=== PATIENT | female | born 1995 | race American Indian/Alaskan Native ===

== ENCOUNTER 2019-03-05 08:51 | Inpatient (IN) | payer MEDICAID ==
[2019-03-05] MEDS ORDERED: TERBUTALINE 1 MG/1 ML INJ IVP PRN (09:28)
[2019-03-05] MEDS ORDERED: TERBUTALINE 1 MG/1 ML INJ SUB-Q PRN (09:28)
[2019-03-05] MEDS ORDERED: NALOXONE 0.4 MG/1 ML INJ IV PRN (09:28)
[2019-03-05] MEDS ORDERED: ONDANSETRON 4 MG/2 ML INJ IV PRN (09:28)
[2019-03-05] MEDS ORDERED: MINERAL OIL 30 ML ORAL LIQD PO PRN (09:28)
[2019-03-05] MEDS ORDERED: ePHEDrine SULFATE 50 MG/1 ML INJ IV PRN (09:28)
[2019-03-05] MEDS ORDERED: BUTORPHANOL 2 MG/1 ML INJ IV PRN (09:28)
[2019-03-05] MEDS ORDERED: LIDOCAINE (2%) 20 MG/1 ML VIAL 20 ML MDV INFILTRATI SCH (09:28)
[2019-03-05] MEDS ORDERED: OXYTOCIN 20 UNIT/1000ML DRIP 20 UNITS/1,000 ML BAG IV SCH (10:00)
[2019-03-05 10:42] LABS: Hematocrit 30.9 % (30.3-42.9); Mean Corpuscular HGB Conc 32 % (30-34); Mean Corpuscular Volume 76 fl (79-97); Platelet Count 338 K/mm3 (140-440); Red Blood Count 4.04 M/mm3 (3.65-5.03); Red Cell Distribution Width 17.5 % (13.2-15.2)
[2019-03-05] MEDS ORDERED: DINOPROSTONE 10 MG VAG SUPP VG NR (12:00)
[2019-03-05] MEDS ORDERED: OXYTOCIN DRIP 30 UNITS/500 ML BAG IV SCH ×2 (12:00→22:00)
[2019-03-05] MEDS ORDERED: AMPICILLIN/NS 2 GM/100 ML 2 GM/100 ML BAG IV ONE (12:00)
--- NOTE | 2019-03-05 13:08 | History and Physical Report ---
History of Present Illness Date of examination: 03/05/19 Date of admission: 03/05/19 08:52 Chief complaint: scheduled induction of labor History of present illness: Pt is a 23 year old -[place]ron[place] female primigravida JORGE 03/10/19 at 39w2d presents for scheduled induction of labor at 39 wks secondary to morbid obesity. She reports good movement, vaginal bleeding, and leakage of fluid. She has had care at [facility] with comanagement with MFM since 11 wks complicated by chlamydia infection treated with negative test of cure, anem ia on iron supplementation. She is GBS positive. 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 (treated with negative test of cure ) Social history: other (Crohn's Disease ) - Obstetrical History Expected Date of Delivery: 03/10/19 Actual Gestation: 39 Week(s) 2 Day(s) : 1 Medications and Allergies Allergies Allergy/AdvReac Type Severity Reaction Status Date / Time latex Allergy Rash Verified 03/05/19 10:46 Home Medications Medication Instructions Recorded Confirmed Last Taken Type No Known Home Medications [No 03/05/19 03/05/19 Unknown History Reported Home Medications] Active Meds: Active Medications Butorphanol Tartrate (Stadol) 2 mg IV Q2H PRN PRN Reason: Pain , Severe (7-10) Dinoprostone (Cervidil) 10 mg VG ONCE NR Stop: 03/05/19 16:00 Ephedrine Sulfate (Ephedrine Sulfate) 10 mg IV Q2M PRN PRN Reason: Hypotension Oxytocin/Sodium Chloride (Pitocin/Ns 20 Unit/1000ml Drip) 20 units in 1,000 mls @ 125 mls/hr IV DIRECT DIXIE Oxytocin/Sodium Chloride (Pitocin/Ns 30 Unit/500ml) 30 units in 500 mls @ 1 mls/hr IV TITR DIXIE; Protocol Oxytocin/Sodium Chloride (Pitocin/Ns 30 Unit/500ml) 30 units in 500 mls @ 2 mls/hr IV TITR DIXIE; Protocol Lactated Ringer's (Lactated Ringers) 1,000 mls @ 125 mls/hr IV DIRECT DIXIE Ampicillin Sodium (Ampicillin/Ns 1 Gm/50 Ml) 1 gm in 50 mls @ 100 mls/hr IV Q4H DIXIE; Protocol Lidocaine (Xylocaine 2%) 20 ml INFILTRATI ONCE DIXIE Stop: 03/05/19 23:59 Mineral Oil (Mineral Oil) 30 ml PO QHS PRN PRN Reason: Constipation Naloxone HCl (Naloxone) 0.1 mg IV Q2MIN PRN PRN Reason: Res Rate </= 8 or 02 SAT < 92% Ondansetron HCl (Zofran) 4 mg IV Q8H PRN PRN Reason: Nausea And Vomiting Terbutaline Sulfate (Brethine) 0.25 mg SUB-Q ONCE PRN PRN Reason: Hyperstimulation/Hypertonicity Terbutaline Sulfate (Brethine) 0.25 mg IVP ONCE PRN PRN Reason: Hyperstimulation/Hypertonicity Review of Systems All systems: negative - Vital Signs Vital signs: Vital Signs Pulse BP 107 H 116/61 03/05/19 10:08 03/05/19 10:08 Temp Pulse Resp BP Pulse Ox 98.8 F 107 H 18 116/61 03/05/19 10:10 03/05/19 10:08 03/05/19 10:10 03/05/19 10:08 - Physical Exam Breasts: Positive: deferred Cardiovascular: Regular rate Lungs: Positive: Clear to auscultation Abdomen: Positive: soft (obese, gravid ) Genitourinary (Female): Positive: normal external genitalia Uterus: Positive: enlarged (gravid ) Extremities: Positive: edema (trace) - Obstetrical Cervical Dilatation: 1 (per RN ) Uterine Contraction Pattern: Absent Uterine Tone Measurement Phase: Resting Uterine Contraction Intensity: Mild Results Result Diagrams: 03/05/19 10:21 Abnormal lab results 03/05/19 Range/Units 10:21 Hgb 10.0 L (10.1-14.3) gm/dl MCV 76 L (79-97) fl MCH 25 L (28-32) pg RDW 17.5 H (13.2-15.2) % All other labs normal. Assessment and Plan A: IUP at 39w2d Morbid Obesity Anemia GBS positive P: Admit to labor and delivery Cervidil for cervical ripening GBS prophylaxis Routine intrapartum care
[2019-03-05] MEDS: LACTATED RINGERS 1,000 ML IV SCH ×3 (14:31→22:39)
[2019-03-05] MEDS: AMPICILLIN/NS 1 GM/50 ML 1 GM/50 ML BAG IV SCH ×2 (17:00→23:25)
[2019-03-06] MEDS: AMPICILLIN/NS 1 GM/50 ML 1 GM/50 ML BAG IV SCH ×2 (04:24→04:25)
[2019-03-06] MEDS ORDERED: oxyCODONE /ACETAMINOPHEN 5-325MG TAB PO PRN (07:46)
[2019-03-06] MEDS ORDERED: HYDROcodone/ACETAMINOPHEN 5-325 MG TAB PO PRN ×2 (07:46→10:37)
[2019-03-06] MEDS ORDERED: PROMETHAZINE 25 MG TAB PO PRN (07:46)
[2019-03-06] MEDS ORDERED: MAGNESIUM HYDROXIDE (MOM) ORAL LIQD UDC PO PRN ×2 (07:46→10:37)
[2019-03-06] MEDS ORDERED: KETOROLAC 30 MG/1 ML INJ IV PRN (07:46)
[2019-03-06] MEDS ORDERED: PROMETHAZINE 25 MG RECT SUPP PR PRN ×2 (07:46→10:37)
[2019-03-06] MEDS ORDERED: WITCH HAZEL/ GLYCERIN PAD TP PRN ×2 (07:46→10:37)
[2019-03-06] MEDS ORDERED: LANOLIN/ZINC/DIMETHICONE (LANSINOH) 7 GM TP PRN ×2 (07:46→10:37)
[2019-03-06] MEDS ORDERED: ONDANSETRON 4 MG/2 ML INJ IV PRN (07:46)
[2019-03-06] MEDS ORDERED: diphenhydrAMINE 25 MG CAP PO PRN (07:46)
[2019-03-06] MEDS ORDERED: SENNOSIDES/DOCUSATE SODIUM 8.6/50 MG TAB PO SCH (08:00)
[2019-03-06] MEDS ORDERED: IBUPROFEN 600 MG TAB PO SCH (08:00)
--- NOTE | 2019-03-06 08:05 | Procedure Note ---
OB Delivery Note - Delivery Date of Delivery: 03/06/19 Surgeon: MICHAEL CASTELAN Estimated blood loss: 300cc - Vaginal Delivery presentation: vertex Delivery position: OA Intrapartum events: no care, labor-<37 weeks, febrile- temp >100.3 Delivery induction: none Delivery monitor: external FHT, external uterine Route of delivery: Delivery placenta: spontaneous Delivery cord: 3 umbilical vessels Episiotomy: none Delivery laceration: 1st degree Delivery repair: vicryl Anesthesia: local Delivery comments: Patient came into L and D for contractions noted to be 9cm. Patient srom at 0725 and commenced to pushing a viable female infant at 0819. The patient Apgars were 8 and 9 and weight of 5 pounds 5.2oz. Survey of perineum revealed a first degree repaired with 2-0 vicryl. BL 300 cc. Excellent hemostaisis. Placenta sent to path. Patient was noted to have foul smelling amnionic fluid and tach with maternal temp of 101. Amp, gent and clinda started
--- NOTE | 2019-03-06 08:16 | Event Note ---
Date: 03/06/19 Patient admitted for IOL for MO. Patient had cervidil and pitocin and noted to have cat 2 strip. After reviewing strip and discussing with family, we decided remote from delivery NRFHT will proceed with primary csec. We discussed bleeding infection, damage to pelvic and non pelvic organs risk of hysterectomy and . patient agrees, all questions answered ad will proceed with csec
[2019-03-06] MEDS ORDERED: OXYTOCIN 20 UNIT/1000ML DRIP 20 UNITS/1,000 ML BAG IV SCH ×3 (08:30→11:00)
[2019-03-06] MEDS ORDERED: ACETAMINOPHEN 325 MG TAB PO PRN (08:30)
[2019-03-06] MEDS ORDERED: BICITRA ORAL LIQD 30ML ONE (08:49)
[2019-03-06] MEDS ORDERED: ceFAZolin/Water 2 GM/20 ML 2 GM/20 ML SYRINGE IV ONE (08:50)
--- NOTE | 2019-03-06 08:57 | Anesthesia Consultation ---
Anesthesia Consult and Med Hx Date of service: 03/06/19 - Airway Anesthetic Teeth Evaluation: Good ROM Head & Neck: Adequate Mental/Hyoid Distance: Adequate Mallampati Class: Class II Intubation Access Assessment: Probably Good - Pulmonary Exam CTA: Yes - Cardiac Exam Cardiac Exam: RRR - Pre-Operative Health Status ASA Pre-Surgery Classification: ASA3 Proposed Anesthetic Plan: Spinal - Pulmonary Hx Asthma: No - Additional Comments Anesthesia Medical History Comments: Chron's dz
--- NOTE | 2019-03-06 08:57 | Anesthesia Day of Surgery ---
Anesthesia Day of Surgery - Day of Surgery Patient Examined: Yes Patient H&P Reviewed: Yes Patient is NPO: Yes
[2019-03-06] MEDS ORDERED: BICITRA ORAL LIQD 30ML PO NR (09:00)
[2019-03-06] MEDS ORDERED: LACTATED RINGERS 1,000 ML IV SCH (09:00)
[2019-03-06] MEDS ORDERED: METOCLOPRAMIDE 10 MG/2 ML INJ IV NR (09:00)
[2019-03-06] MEDS ORDERED: FAMOTIDINE 20 MG/2 ML INJ IV NR (09:00)
[2019-03-06] MEDS ORDERED: ceFAZolin/Water 2 GM/20 ML 2 GM/20 ML SYRINGE IV NR (09:00)
[2019-03-06] MEDS ORDERED: DEXMEDETOMIDINE 200 MCG/2 ML VIAL IV ONE (09:10)
[2019-03-06] MEDS ORDERED: KETOROLAC 30 MG/1 ML INJ ONE (09:10)
[2019-03-06] MEDS ORDERED: ONDANSETRON 4 MG/2 ML INJ ONE (09:10)
[2019-03-06] MEDS ORDERED: OXYTOCIN 10 UNIT/1 ML INJ ONE (09:10)
[2019-03-06] MEDS ORDERED: BUPIVACAINE/PF (0.5%) 5 MG/1 ML 30 ML VIAL INFILTRATI ONE (09:10)
[2019-03-06] MEDS ORDERED: SODIUM CHLORIDE 0.9% IRR 1,500 ML BOTTLE IR ONE (09:45)
[2019-03-06] MEDS ORDERED: WATER FOR IRRIG STERILE 1,500 ML BOTTLE IR ONE (09:45)
[2019-03-06] MEDS ORDERED: METHYLERGONOVINE MALEATE 0.2 MG/ML VIAL IM ONE (09:52)
[2019-03-06] MEDS ORDERED: HETASTARCH 6% 500 ML IV ONE (09:57)
[2019-03-06] MEDS ORDERED: PHENYLEPHRINE/NS 1,000 MCG/10 ML SYRINGE (OR USE) IV ONE (09:57)
[2019-03-06] MEDS ORDERED: DOCUSATE SODIUM 100 MG CAP PO SCH (10:00)
[2019-03-06] MEDS ORDERED: PRENATAL VIT27-FE FUMARATE-FOLIC ACID VIT TAB PO SCH (10:00)
[2019-03-06] MEDS ORDERED: NalbUPHINE 10 MG/1 ML INJ IV PRN (10:31)
--- NOTE | 2019-03-06 10:31 | Post Anesthesia Evaluation ---
- Post Anesthesia Evaluation Patient Participated: Yes Airway Patent: Yes Stable Respiratory Function: Yes Nausea/Vomiting: No Temp > 96.8F: Yes Pain Manageable: Yes Adequeate Hydration: Yes Anesthesia Complications: No Block Receding Appropriately: Yes
[2019-03-06] MEDS ORDERED: HYDROCORTISONE 25 MG RECTAL SUPP PR PRN (10:37)
[2019-03-06] MEDS ORDERED: MORPHINE 2 MG/1 ML INJ IV PRN (10:37)
[2019-03-06] MEDS ORDERED: NALOXONE 0.4 MG/1 ML INJ IV PRN (10:37)
[2019-03-06] MEDS ORDERED: SIMETHICONE 80 MG CHEW TAB PO PRN (10:37)
[2019-03-06] MEDS ORDERED: MORPHINE 4 MG/1 ML INJ IV PRN (10:37)
[2019-03-06] MEDS ORDERED: SENNOSIDES 8.6 MG TAB PO PRN (10:37)
--- NOTE | 2019-03-06 10:41 | Procedure Note ---
OB Delivery Note - Delivery Date of Delivery: 03/06/19 Surgeon: MICHAEL CASTELAN Estimated blood loss: 500cc - Section Preop diagnosis: nonreassuring FHR tracing Postop diagnosis: same section procedure: section Disposition: PACU Complications: none Narrative: see op note - Infant A at 1 minute: 8 at 5 minutes: 9 Gender: Female (2901 g weight)
--- NOTE | 2019-03-06 10:46 | Operative Report ---
Operative Report Operative Report: DATE OF OPERATION:03/06/19 PREOPERATIVE DIAGNOSES: 1. Intrauterine gestation at 39 weeks,IOL for MO 2. NRFHT with late decels 3. Meconium POSTOPERATIVE DIAGNOSES: 1. Intrauterine gestation at 39 weeks , IOL for MO 2. NRFHT with late decels 3. Meconium 4. Double tight nuchal cord OPERATION PERFORMED: Primary low transverse section. SURGEON: Daya Patel MD ANESTHESIA: Spinal COMPLICATIONS: None. ESTIMATED BLOOD LOSS: 500 mL. DRAINS: Valdivia catheter to the bladder. SPECIMENS TO PATHOLOGY: Cord blood for routine testing. OPERATIVE FINDINGS: A viable female infant with Apgars of 8 and 9 and birthweight of 2901g was delivered from a cephalic presentation,. The cord contained 3 vessels. Nuchal cord x2 tight There was normal anterior fundal placenta. The amniotic fluid was clear. The uterus, fallopian tubes and ovaries were normal. DESCRIPTION OF OPERATION: The patient was brought to the operating suite in stable condition with epidural anesthesia on board and an indwelling catheter in place in the bladder. The patient was placed supine on the operating room table and rolled to her left side with a wedge. The abdomen was prepped and draped in standard fashion for section. After testing with forceps to assure an adequate anesthetic level, the surgery was commenced. We had counseled the patient extensively regarding the risks of the surgery including but not limited to stroke, embolus, phlebitis, pain, infection, hemorrhage, as well as injury to the infant and the internal organs such as the bowel, bladder, blood vessels, nerves, kidneys, ureters and pelvic organs. The patient was aware of the postoperative morbidity issues and recovery timeframes. The patient was aware she can form adhesions, which can result in obstruction of loop of bowel or ureter or chronic pain. She was aware that should she have hemorrhage and require blood transfusion, there was a small chance for exposure to hepatitis or HIV disease. With the scalpel, a Pfannenstiel skin incision was made. Dissection was carried down sharply through the subcutaneous tissues and fascia in a transverse plane with the scalpel, electrocautery and curved Flor scissors. The fascia was sharply freed up superiorly and inferiorly from the underlying rectus muscles, which were bluntly and sharply divided. The peritoneum was entered carefully in a clear space with a curved hemostat. The peritoneal incision was then extended vertically with Metzenbaum scissors. A retractor and bladder blade were placed. A bladder flap was created by incising transversely through the peritoneum and vesicouterine fold and then bluntly dissecting the bladder distally. With the scalpel, a low transverse hysterotomy was commenced. The serosa and myometrium were scored with the scalpel. The uterine cavity was actually entered bluntly with a curved hemostat. The uterine incision was then extended laterally with the sanforizing machine operator's fingers. An intrauterine hand was placed and the head of the was brought up out of the pelvis into the uterine incision. With fundal pressure, he was delivered without difficulty. The nasopharynx and oropharynx were suctioned. The cord was doubly clamped and transected. The was then handed off to the nursery personnel. Apgars were good at 8 and 9. The placenta was manually removed. The uterine cavity was then curetted with a dry sponge and freed of the remaining membranes. The edges of the uterine incision were grasped with Crowell clamps. With the massage and the Pitocin, the uterus began to firm up normally. The uterine incision was then closed in 2 layers of 0 Vicryl sutures. The first suture was placed to the endometrium and myometrium. The second suture was placed through the endopelvic fascia and also reincorporated the bladder flap peritoneum. Peritoneal lavage was then performed. The pelvis and gutters were irrigated and suctioned and cleared of all blood and clots and amniotic fluid. The uterine incision was reinspected to assure hemostasis. The uterus, tubes and ovaries were inspected and were normal. Once we were satisfied with the hemostasis, attention was turned to closure of the abdominal incision. The peritoneum, muscles and fascia were closed in layers using 0-Vicryl sutures. The subcutaneous tissue was closed with 3-0 plain sutures. The skin was closed with a subcuticular suture of 4-0 Vicryl followed by benzoin, Steri-Strips and a Telfa dressing. The patient was moved to the recovery room in stable condition with the Valdivia catheter draining clear urine. Instruments, sponge and needle counts were reported as correct. Estimated blood loss was 500 mL. There were no complications.
[2019-03-06] MEDS ORDERED: ACETAMINOPHEN 500 MG TAB PO SCH (11:00)
[2019-03-06] MEDS ORDERED: D5W/LACTATED RINGERS 1,000 ML IV SCH (11:00)
[2019-03-06] MEDS ORDERED: AMPICILLIN/NS 2 GM/100 ML 2 GM/100 ML BAG IV SCH (12:00)
[2019-03-06] MEDS: ACETAMINOPHEN 325 MG TAB PO SCH ×2 (13:08→19:58)
[2019-03-06] MEDS: KETOROLAC 30 MG/1 ML INJ IV SCH (13:09)
[2019-03-06] MEDS ORDERED: CLINDAMYCIN 600 MG/50 mL 600 MG/50 ML BAG IV SCH (14:00)
[2019-03-06] MEDS: oxyCODONE /ACETAMINOPHEN 5-325MG TAB PO PRN (21:33)
[2019-03-06 23:27] LABS: Hemoglobin 9.8 gm/dl (10.1-14.3)
[2019-03-07] MEDS: KETOROLAC 30 MG/1 ML INJ IV SCH (02:06)
[2019-03-07] MEDS: ACETAMINOPHEN 325 MG TAB PO SCH ×3 (02:17→12:21)
[2019-03-07] MEDS ORDERED: TETANUS,DIPH,PERTUSS(ACELL) VACCINE 0.5 ML SYRINGE IM ONE (06:00)
[2019-03-07] MEDS: PRENATAL VIT27-FE FUMARATE-FOLIC ACID VIT TAB PO SCH (09:39)
[2019-03-07] MEDS: FERROUS SULFATE 325 MG TAB PO SCH (09:39)
[2019-03-07] MEDS ORDERED: MEASLES, MUMPS & RUBELLA 12,500 UNIT/0.5 ML VACCINE SUB-Q ONE (11:00)
[2019-03-07] MEDS: IBUPROFEN 800 MG TAB PO PRN ×2 (11:41→17:37)
--- NOTE | 2019-03-07 17:32 | Progress Note ---
Assessment and Plan POD1 s/p primary LTCS Vital signs stable Anemia- Fe supplementation Routine pp care Consider d/c to home tomorrow Subjective - Subjective Date of service: 03/07/19 Principal diagnosis: s/p primary LTCS Interval history: Pt is POD1 s/p primary LTCS Patient reports: appetite normal, voiding normally, pain well controlled, flatus, ambulating normally [place]: doing well, nursing well Objective - Vital Signs Latest vital signs: Vital Signs Temp Pulse Resp BP BP Pulse Ox 03/07/19 08:02 97.6 F 82 18 110/64 99 03/07/19 06:40 18 03/07/19 03:17 18 03/07/19 02:17 18 03/07/19 00:00 98.7 F 68 16 115/72 03/06/19 22:33 18 03/06/19 21:33 18 03/06/19 19:58 18 03/06/19 19:30 98.7 F 85 16 106/59 Intake and Output 03/07/19 03/07/19 03/07/19 07:59 15:59 23:59 Intake Total 840 Output Total 300 Balance 540 Intake: Oral 540 Intake, Free Water 300 Output: Urine 300 Void 300 Other: Total, Intake Amount 300 Total, Output Amount 300 - Exam Lungs: Present: Normal air movement Abdomen: Present: normal appearance, soft Uterus: Present: firm, fundal height below umbilicus Extremities: Present: normal Incision: Present: dressed - Labs Labs: Abnormal lab results 03/06/19 Range/Units 22:58 Hgb 9.8 L (10.1-14.3) gm/dl
[2019-03-08] MEDS: ACETAMINOPHEN 325 MG TAB PO SCH ×2 (00:18→06:06)
[2019-03-08] MEDS: IBUPROFEN 800 MG TAB PO PRN ×2 (00:18→06:05)
--- NOTE | 2019-03-08 08:50 | Progress Note ---
Assessment and Plan POD2 s/p primary LTCS Vital signs stable Anemia- Fe supplementation D/c to home today Subjective - Subjective Date of service: 03/08/19 Principal diagnosis: s/p primary LTCS Interval history: Pt is POD2 s/p primary LTCS Patient reports: appetite normal, voiding normally, pain well controlled, flatus, ambulating normally : doing well, nursing well Objective - Vital Signs Latest vital signs: Vital Signs Temp Pulse Resp BP BP Pulse Ox 03/08/19 07:05 18 03/08/19 06:05 18 03/08/19 01:18 18 03/08/19 00:18 18 03/07/19 23:30 98.6 F 74 18 106/67 03/07/19 16:40 97.5 F L 92 H 18 109/54 100 Intake and Output 03/07/19 03/08/19 03/08/19 23:59 07:59 15:59 Intake Total 300 Balance 300 Intake: Intake, Free Water 300 Other: # Voids Void 4 1 - Exam Lungs: Present: Normal air movement Abdomen: Present: soft Uterus: Present: firm, fundal height below umbilicus Extremities: Present: normal Incision: Present: dressed
--- NOTE | 2019-03-08 08:54 | Discharge Summary ---
Providers - Providers Date of Admission: 03/05/19 08:52 Date of discharge: 03/08/19 Attending physician: LOW OLIVIA Primary care physician: LOW OLIVIA Hospitalization Reason for admission: induction of labor Delivery: Procedure: primary low transverse Episiotomy: none Laceration: none Incision: normal, dressed Other procedures: none complications: none Discharge diagnosis: IUP at term delivered Hospital course: Pt presented for IOL for MO and progressed to LTCS for failure to progress and Category 2 tracing. course uncomplicated. Condition at discharge: Good Disposition: DC-01 TO HOME OR SELFCARE Plan - Discharge Medications Prescriptions: Ferrous Sulfate [Ferrous Sulfate 324 MG] 324 mg PO BID #60 tablet. Ibuprofen [Motrin] 600 mg PO Q6H PRN #60 tablet PRN Reason: Pain oxyCODONE /ACETAMINOPHEN [Percocet 5/325] 1 tab PO Q6HR PRN #40 tablet PRN Reason: Pain - Provider Discharge Summary Activity: routine, no sex for 6 weeks, no heavy lifting 4 weeks, no strenuous exercise Diet: routine Instructions: routine Additional instructions: [] Smoking cessation referral if applicable(refer to patient education folder for contact #) [] Refer to [facility] Booklet Call your doctor immediately for: * Fever > 100.5 * Heavy vaginal bleeding ( >1 pad per hour) * Severe persistent headache * Shortness of breath * Reddened, hot, painful area to leg or breast * Drainage or odor from incision. * Keep incision clean and dry at all times and follow doctor's instructions regarding bathing/showering - Follow up plan Follow up: LOW OLIVIA MD [Primary Care Provider] - 14 Days (Please call [facility] to schedule appointment.)
[2019-03-08] MEDS: FERROUS SULFATE 325 MG TAB PO SCH (10:12)
[2019-03-08] MEDS: PRENATAL VIT27-FE FUMARATE-FOLIC ACID VIT TAB PO SCH (10:13)
[2019-03-08] MEDS: oxyCODONE /ACETAMINOPHEN 5-325MG TAB PO PRN (10:14)
[2019-03-08 13:50] VITALS: BP 110/61
== END 2019-03-08 14:48 | disposition home or self-care (01) | DRG 766 ==
LOC: TRG 08:51 → LD 08:52 → OB 03-06 12:18
PROVIDERS: ADMIT Obstetrics & Gynecology; ATTEND Obstetrics & Gynecology
PROC: 10D00Z1 Extraction of Products of Conception, Low, Open Approach (ICD-10-PCS; principal; 2019-03-06)
DX: O76 Abnormality in fetal heart rate and rhythm complicating labor and delivery (principal); O77.0 Labor and delivery complicated by meconium in amniotic fluid; O99.214 Obesity complicating childbirth; E66.01 Morbid (severe) obesity due to excess calories; O99.02 Anemia complicating childbirth; D64.9 Anemia, unspecified; O99.824 Streptococcus B carrier state complicating childbirth; O69.1XX0 Labor and delivery complicated by cord around neck, with compression, not applicable or unspecified; O32.4XX0 Maternal care for high head at term, not applicable or unspecified; Z37.0 Single live birth; Z3A.39 39 weeks gestation of pregnancy; Z91.040 Latex allergy status
CPT/HCPCS: 36415; 85014; 85018; 85027; 86850; 86900; 86901; G0378; J0290; J0690; J1885; J2210; J2370; J2405; J2590; J2765; J3490; J7120; J7121